=== PATIENT | female | born 1945 | race Caucasian/White ===

== ENCOUNTER 2016-11-12 06:53 | Day surgery (SDC) ==
[2016-11-12] MEDS ORDERED: LIDOCAINE 1% 20 ML MDV ID ONE (07:13)
[2016-11-12] MEDS ORDERED: DIPRIVAN 20 ML VIAL IVP ONE (08:50)
[2016-11-12 10:00] VITALS: BP 123/75; TEMP 98
--- NOTE | 2016-11-13 06:58 | OP ---
INDICATIONS FOR PROCEDURE: 71-year-old female presents for colonoscopy. Her last colonoscopy was five years ago with a polyp being found, unknown histology. MEDICATIONS: SEE ANESTHESIA NOTES. PROCEDURE: COLONOSCOPY. REPORT: The risks, benefits, alternatives and limitations were discussed in detail with the patient. Informed consent was obtained. After adequate sedation was achieved, a digital rectal exam revealed good tone, no masses. The colonoscope was introduced into the rectum and advanced under direct visual guidance to the cecum. The cecum was identified by the appendiceal orifice and IC valve. I then slowly withdrew the scope in a circumferential manner examining the mucosa quite carefully. I looked on the proximal and distal side of folds and flexures as best as possible. The colonic mucosa was unremarkable other than diverticulosis scattered throughout the left colon. No other abnormalities were noted including on retroflex view of the anal canal. The prep was good. The withdrawal time was 6 minutes and 27 seconds. The patient tolerated the procedure well with stable vital signs and pulse oximetry throughout. IMPRESSION: 1. DIVERTICULOSIS. RECOMMENDATIONS: 1. High fiber diet. 2. Office visit as needed. 3. Consider colon examination anywhere from 5 to 10 years, sooner if there are any signs or symptoms to indicate otherwise. CC: DR. BRITTANEY JENNINGS
== END 2016-11-12 10:10 | disposition home or self-care (01) ==
LOC: SURG 06:53
PROVIDERS: ATTEND Internal Medicine Gastroenterology
DX: Z86.010 Personal history of colon polyps (principal); K57.30 Diverticulosis of large intestine without perforation or abscess without bleeding